=== PATIENT | female | born 1965 | race Caucasian/White ===

== ENCOUNTER 2017-03-24 10:42 | Inpatient (IN) | payer OTHER ==
[~2017-03-24] VITALS: Ht 171.4 cm; Wt 65.8 kg
[2017-03-24 12:48] LABS: ALBUMIN 3.8 g/dL (3.4-5.0); ALKALINE PHOSPHATASE 71 U/L (46-116); ALT (SGPT) 23 U/L (10-68); CALC OSMOLALITY 277 mosm/kg (275-300); CALCIUM 8.8 mg/dL (8.5-10.1); CARBON DIOXIDE 25.1 mmol/L (21.0-32.0); CHLORIDE - SERUM 105 mmol/L (98-107); CREATININE - SERUM 0.8 mg/dL (0.6-1.3); GLUCOSE 97 mg/dL (74-106); POTASSIUM - SERUM 4.6 mmol/L (3.5-5.1); SODIUM 140 mmol/L (136-145); UREA NITROGEN 9 mg/dL (7-18); eGFR NON AFRICAN AMERICAN 79 mL/min (90-120)
[2017-03-24 12:51] LABS: BASOPHILS 0.1 % (0-2); EOSINOPHILS 0.2 % (0-7); HEMATOCRIT 40.1 % (36.0-48.0); HEMOGLOBIN 13.9 g/dL (12-16); IMMATURE GRANULOCYTES 0.3 % (0-5); LYMPHOCYTES 22.2 % (15-50); MCH 33.3 pg (26.0-34.0); MCHC 34.7 g/dL (31.0-37.0); MCV 96.2 fL (80.0-100.0); MEAN PLATELET VOLUME 9.1 fL (7.4-10.4); MONOCYTES 10.5 % (2-11); NEUTROPHILS 66.7 % (40-80); PLATELET COUNT 213 10x3/uL (130-400); RBC 4.17 10x6/uL (4.00-5.40); RDW 14.6 % (11.5-14.5); WBC 9.4 10x3/uL (4.8-10.8)
[2017-03-24 12:56] LABS: CREATINE KINASE 86 UL (21-215); MAGNESIUM - SERUM 2.1 mg/dL (1.8-2.4); PRO BNP 394 pg/mL (0-125); TROPONIN-I < 0.017 ng/mL (0.000-0.060)
[2017-03-24] MEDS ORDERED: VALIUM5 MG PO (15:31)
[2017-03-24] MEDS ORDERED: ZOFRAN8 MG PO (15:31)
[2017-03-24 16:32] VITALS: BP 140/85; BMI 22.4
[2017-03-24 17:56] LABS: BASOPHILS 0.1 % (0-2); EOSINOPHILS 0.3 % (0-7); HEMOGLOBIN 13.9 g/dL (12-16); IMMATURE GRANULOCYTES 0.2 % (0-5); LYMPHOCYTES 23.4 % (15-50); MCH 33.3 pg (26.0-34.0); MCHC 34.8 g/dL (31.0-37.0); MCV 95.9 fL (80.0-100.0); MEAN PLATELET VOLUME 8.9 fL (7.4-10.4); MONOCYTES 6.9 % (2-11); NEUTROPHILS 69.1 % (40-80); PLATELET COUNT 225 10x3/uL (130-400); RBC 4.17 10x6/uL (4.00-5.40); RDW 14.8 % (11.5-14.5); WBC 9.2 10x3/uL (4.8-10.8)
[2017-03-24 18:06] LABS: APTT 24.5 SECONDS (22.8-39.4)
[2017-03-24 18:07] LABS: INR 0.92 (0.85-1.17); PROTIME 12.2 SECONDS (11.6-15.0)
[2017-03-24 19:00] VITALS: BP 110/72
--- NOTE | 2017-03-24 20:00 | NUR ---
ASSESSMENT PER FLOWSHEET. IV PATENT LEFT WRIST SALINE LOCKED. HOB UP 30 DEGREES. SR UP X2 CALL LIGHT WITHIN REACH.
--- NOTE | 2017-03-24 22:44 | NUR ---
IV PAINFUL NO BLOOD RETURN RESITED TO RT FOREARM #22G X1 ATTEMPT. MORPHINE 4 MG IVP GIVEN FOR PAIN CONTROL ZOFRAN 4MG IVP GIVEN FOR NAUSEA.
[2017-03-25] VITALS (10 sets, daily range): BP systolic 87–119; BP diastolic 46–74; Ht 171.4 cm; Wt 65.8 kg
--- NOTE | 2017-03-25 | NUR ---
EYES CLOSED RESPIRATIONS WITH EASE AND UNLABORED. NPO FOR BROCH IN AM.
--- NOTE | 2017-03-25 02:30 | NUR ---
EYES CLOSED RESPIRATIONS WITH EASE AND UNLABORED.
--- NOTE | 2017-03-25 04:00 | NUR ---
AWAKE UP AD ALEXSANDRA TO BR VOIDS WELL.
--- NOTE | 2017-03-25 06:37 | NUR ---
C/O PAIN AND NAUSEA. MORPHINE 4 MG IVP GIVEN FOR PAIN ZOFRAN 4MG IVP GIVEN FOR NAUSEA.
--- NOTE | 2017-03-25 06:38 | NUR ---
REMAINS NPO FOR BRONCH.
--- NOTE | 2017-03-25 08:40 | NUR ---
A&O, DENIES NEEDS, CALL LIGHT IN REACH, BED LOWEST POSITION, WILL CONTINUE TO MONITOR
--- NOTE | 2017-03-25 09:31 | NUR ---
Patient Name: COSME BROWN Admission Status: ER Accout number: [id number] Admission Date: 03-24-2017 : 1965 Admission Diagnosis: Attending: FATMATA Current LOS: 1 Anticipated DC Date: 03-26-2017 Planned Disposition: Home Primary Insurance: [employer] EXCHANGE Discharge Planning Comments: CM MET WITH PATIENT REGARDING D/C NEEDS AND PLANS. PATIENT STATED SHE LIVES ALONE AND WILL DRIVE HERSELF HOME AT DISCHARGE. PATIENT STATED THERE ARE NO STEPS OR STAIRS AT HER HOME. PATIENT IS INDEPENDENT WITH HER CARE AND HAS NO DME AT HOME. PATIENT STATED SHE HAS FRIENDS THAT COULD HELP IF NEEDED. PATIENTS PCP IS DR. PÉREZ AND PHARMACY IS [facility] ON [address]. PATIENT REFUSED HOME HEALTH AT THIS TIME. CM WILL CONTINUE TO FOLLOW PATIENT WITH D/C NEEDS AND PLANS. PCP DR. [facility]LS[facility]- [phone] [place] [phone] Director Cloud Transformation: Dawn Burnette Is the patient Alert and Oriented? Yes 0 * How many steps to enter\exit or inside your home? 0 0 * PCP DR. PÉREZ 0 * Pharmacy [facility] [address] 0 * Preadmission Environment Home Alone 0 * ADLs Independent 0 * Equipment None 0 * List name and contact numbers for known caregivers / representatives who currently or will assist patient after discharge: [place] (FRIEND) [phone] 0 * Community resources currently utilized None 0 * Additional services required to return to the preadmission environment? Yes 0 * Can the patient safely return to the preadmission environment? Yes 0 * Has this patient been hospitalized within the prior 30 days at any hospital? No 0 Grand Total: 0
--- NOTE | 2017-03-25 10:18 | NUR ---
PT BEING TAKEN FOR TEST AT THIS TIME, NO VISABLE SIGNS OF PAIN OR DISCOMFORT AT THIS TIME. WILL CONTINUE TO MONITOR.
--- NOTE | 2017-03-25 20:00 | NUR ---
ASSESSMENT PER FLOWSHEET. IV PATENT RT FOREARM SALINE LOCKED. DR. KOHLER HERE TO SEE PATIENT. ORDERS REC'D.
--- NOTE | 2017-03-25 21:00 | NUR ---
PERMITS SIGNED BY PATIENT FOR POWER PORT IN AM DISCUSSED WITH PATIENT NPO STATUS AFTER MIDNIGHT.
--- NOTE | 2017-03-25 21:35 | NUR ---
C/O PAIN IN HEAD RATES PAIN LEVEL #8 MORPHINE 4MG IVP GIVEN FOR PAIN CONTROL.
--- NOTE | 2017-03-25 22:56 | NUR ---
C/O NAUSEA NO EMESIS SEEN ZOFRAN 4MG IVP GIVEN FOR NAUSEA
--- NOTE | 2017-03-26 | NUR ---
NPO FOR SURGERY IN AM.
--- NOTE | 2017-03-26 02:00 | NUR ---
EYES CLOSED RESPIRATIONS WITH EASE AND UNLABORED.
--- NOTE | 2017-03-26 03:29 | NUR ---
C/O PAIN HEAD AREA RATES PAIN LEVEL #8. DILAUDID 1MG IVP GIVEN FOR PAIN CONTROL.
[2017-03-26 04:00] VITALS: BP 96/52
--- NOTE | 2017-03-26 04:41 | NUR ---
TEMP SHOWING 101. ROOM VERY HOT ADJUSTED SETTINGS ON AIRCONDITIONER WILL RECHECK TEMP.
--- NOTE | 2017-03-26 05:01 | NUR ---
RECHECKED MORY=083.5. ROOM COOLER NOW. MEDS GIVEN PER OCT.
--- NOTE | 2017-03-26 05:58 | NUR ---
RESTING QUIETLY. REMAINS NPO FOR SURGERY. SR UP X2 CALL LIGHT WITHIN REACH.
--- NOTE | 2017-03-26 07:55 | NUR ---
ASSESSMENT PER FLOW SHEET.PT WITHOUT DISTRESS.NPO FOR SURGERY TODAY.MONITOR FOR NEEDS.CALL LIGHT IN REACH
[2017-03-26 09:02] VITALS: BP 104/61
[2017-03-26 13:26] VITALS: BP 95/51
--- NOTE | 2017-03-26 14:30 | NUR ---
PRE MEDS ORDERED.
--- NOTE | 2017-03-26 15:30 | NUR ---
TO OR VIA BED
[2017-03-26 16:28] VITALS: BP 105/58
[2017-03-26 19:13] VITALS: BP 123/73
--- NOTE | 2017-03-26 19:59 | NUR ---
PATIENT IS AWAKE AND ALERT. REQUESTED THE DOOR BE CLOSED. PATIENT DENIES FURTHER NEEDS. BED IN LOWEST POSITION, CALL LIGHT IN REACH. BED RAILS UP X'S 2. CLOSED THE DOOR FOR HER.
[2017-03-26 20:00] VITALS: BP 116/67; BP 123/73
--- NOTE | 2017-03-26 22:26 | NUR ---
PATIENT WAS RECIEVED FROM RECOVER AROUND 1909 POST-OP PORT PLACEMENT. PATIENT WAS STABLE WITH SOME DISCOMFORT NOTED, 4MG MORPHINE GIVEN IV. RECOVERY DID GIVE 1GM OF VANCOMYCIN THROUGH PIV. PAGED FOR MINIMAL TEMP INCREASE TO HAVE MEDICATION AVALIBLE FOR FEVER.
--- NOTE | 2017-03-26 22:45 | NUR ---
DR AYAH HOWARD GAVE T.O. FOR 650 TYLENOL Q4HP FOR TEMP >101.0 AND DO BLOOD CULTURES x2.
[2017-03-27] VITALS: BP 84/53
[2017-03-27 04:00] VITALS: BP 95/59
--- NOTE | 2017-03-27 07:45 | NUR ---
PT AOX4 RESP EVEN AND NONLABORED PT DENIES NEEDS AT THIS TIME IV TO RIGHT FOREARM PATENT AND INTACT AT THIS TIME SRX2 BED AT LOWEST SETTING CALL LIGHT WITHIN REACH WILL CONTINUE TO MONITOR
[2017-03-27 07:53] VITALS: BP 94/47
[2017-03-27 12:16] VITALS: BP 95/56
--- NOTE | 2017-03-27 12:23 | NUR ---
NUTRITION MONITORING & EVAL CHART REVIEWED, PT VISIT. TOLERATING REG BREAKFAST WITH GOOD PO INTAKE. ENCOURAGED PT TO FILL OUT MENU, WILL HONOR FOOD PREFERENCES. RD FOLLOWING
[2017-03-27 13:17] LABS: FUNGUS STAIN Final report (())
--- NOTE | 2017-03-27 15:40 | NUR ---
CM REASSESSMENT NOTE: PATIENT IS DISCHARGING HOME WITH NO NEEDS. REFUSED HOME HEALTH.
--- NOTE | 2017-03-27 15:47 | NUR ---
IV DISCONTINUED WITH CATHETER INTACT AT THIS TIME
[2017-03-27] MEDS ORDERED: HYDROCODON-ACE1 EAC7 PO (15:48)
--- NOTE | 2017-03-27 16:22 | NUR ---
PT GIVEN DISCHARGE INSTRUCTION WITH ONE PRESCRIPTION FOR PAIN MEDICATION AT THIS TIME PT VERBALIZES UNDERSTANDING AND LEFT MED/SURG FLOOR VIA AMBULATION AND PRIVATE VEHICLE AT THIS TIME
[2017-03-27 19:10] LABS: ACID FAST SMEAR Negative (()); AFB SPECIMEN PROCESSING Concentration (())
--- NOTE | 2017-04-03 11:49 | CN ---
PATIENT NAME:COSME BROWN MEDICAL RECORD: [id number] : 61 LOCATION:D.MS [facility] ADMIT DATE: 03/24/17 ACCOUNT: [id number] CONSULTING PHYSICIAN: KERA KOHLER MD REFERRING PHYSICIAN: ART MATHEWS MD DATE OF CONSULTATION: 03/25/2017 CHIEF COMPLAINT: Pneumonia. HISTORY OF PRESENT ILLNESS: I have been asked to see the patient for different 2 reasons. One is placement of a port for chemotherapy. I contacted Dr. New, who is patient consumer marketer for Dr. Mathews. She states that I can go ahead and proceed with the port placement. I told the patient I will try to place it on the left side and if I cannot then I will place it on the right side. The risks, possible complications and alternatives to procedure were explained to the patient. She elects to proceed. The patient has metastatic lung cancer. She has post-obstructive pneumonia. I have reviewed the bronchoscopic photographs. I have personally discussed the bronchoscopic images with Dr. Smith, the supervisor blood donor recruiters. I have personally reviewed her chest x-ray. I have asked to place a endobronchial stent. The patient had a CT scan of her [facility] and I do not have access to those images at this time. I will discuss her case with the radiologist once I have access to the images. Symptoms came on gradually. She is dyspneic at rest. Lying supine aggravates. Nothing alleviates. The patient was admitted through the Emergency Room. REVIEW OF SYSTEMS: Positive for dyspnea, no hemoptysis, no diarrhea. No hematemesis, no dyspepsia, positive for extremity pain. PAST MEDICAL AND SURGICAL HISTORY: Positive for lung cancer. HOME MEDICATIONS: Zofran, diazepam. ALLERGIES: No known drug allergies. SOCIAL HISTORY: Social use of alcohol. No illicit drug use. FAMILY HISTORY: Not pertinent. PHYSICAL EXAMINATION: GENERAL: The patient does appear acutely ill. She does not appear chronically ill. VITAL SIGNS: Reviewed. HEAD: External ears appear normal. EYES: Extraocular movements are intact. NECK: Trachea is midline. CHEST: No intercostal retractions. PULMONARY: No stridor, mildly labored. ABDOMEN: Nontender. EXTREMITIES: No peripheral cyanosis. CHEST: Decreased breath sounds on the left side. BACK: No thoracic kyphosis. LYMPHATICS: No lymphangitic streaking of the exposed extremities. CONSULT REPORT [id number] COSME BROWN PSYCHIATRIC: Anxious affect. NEUROLOGIC: Nonfocal, no lethargy. The patient answers questions appropriately, moves all extremities well. IMPRESSION: Lung cancer, metastatic with a postobstructive pneumonia. PLAN: Consider endobronchial stent placement. This is going to require getting accurate measurements and then contact the [employer] billing representative to bring some more stents and probably this will take place on Thursday as it will not take place over the weekend. The patient wonders where she can go home and then return on Thursday and that would be fine from my standpoint. I will also place a port either on the left side or right side. TRANSINT:[id number] Voice Confirmation ID: [id number] DOCUMENT ID: [id number] KERA KOHLER MD at 1149 CC: DAISY PÉREZ MD and ART MATHEWS MD [id number] DICTATION DATE: 03/26/17 185 FABRICATION LEAD: 03/26/17 2147 DIS IN 03/27/17 [id number] [place] [address]
[2017-04-03 20:08] LABS: AEROBE ID Final report (()); RESULT 1 Pantoea species (())
[2017-04-05 11:08] LABS: FUNGUS MYCOLOGY CULTURE Preliminary report (())
[2017-04-06 10:10] LABS: FUNGUS CULTURE RESULT 1 Candida dubliniensis (())
--- NOTE | 2017-04-08 14:02 | CN ---
PATIENT NAME:COSME BROWN MEDICAL RECORD: [id number] : [birth year] LOCATION:D.MS [facility] ADMIT DATE: 03/24/17 ACCOUNT: [id number] CONSULTING PHYSICIAN: GOPAL SAMANIEGO MD REFERRING PHYSICIAN: JERAMIE MATHEWS MD DATE OF CONSULTATION: 03/24/2017 CONSULT REQUESTING PHYSICIAN: Dr. Jeramie Mathews. REASON FOR CONSULTATION: Total atelectasis at the left lower lobe, cancer of the lung. HISTORY OF PRESENT ILLNESS: Ms. Brown is a 51-year-old female. 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 According to the patient, for the last few days, she has worsening shortness of breath. There were no fever and chills, no night sweats. She has cough with very little sputum production. She also feeling some tightness in the left side of the chest, feels like she cannot take deep breath. There is no radiation to the arm or to the jaw. The patient had a CT scan at [facility] today, but then she came to our ER for further evaluation. She found out she has total atelectasis of the left lower lobe on the chest x-ray. REVIEW OF SYSTEMS: Mainly in the history of present illness. PAST MEDICAL HISTORY: 1. Stage IV CA of the lung with metastasis to the brain, but type is not known. 2. Suspect COPD. 3. History of smoking, nicotine dependence. PAST SURGICAL HISTORY: She has a brain surgery for metastasis. ALLERGIES: She has no known drug allergies. MEDICATIONS: On [employer] is reviewed. PERSONAL AND SOCIAL HISTORY: The patient is an ex-smoker. She is a nondrinker. FAMILY HISTORY: Noncontributory. PHYSICAL EXAMINATION: GENERAL: Now, the patient is not in acute distress. VITAL SIGNS: The blood pressure is 140/85, pulse is 84, respirations 21, temperature 98.2, and SpO2 is 88% on room air. HEENT: Conjunctiva is pink. Sclera is nonicteric. NECK: Neck is supple. No JVD. CHEST: The chest excursion is minimal on the left side with absent breath sounds at the left base. No wheezing, crackles on the right side. HEART: Regular, normal sound, no murmur. ABDOMEN: Soft, bowel sounds present. No hepatosplenomegaly. RECTAL: Deferred. EXTREMITIES: No cyanosis, no clubbing, no pedal edema. SKIN: The skin is warm. Normal turgor. CENTRAL NERVOUS SYSTEM: The patient is awake and alert. There is no obvious cranial nerve abnormality. The gait was not tested. CONSULT REPORT [id number] COSME BROWN CHEST RADIOGRAPH: There is total atelectasis of the left lower lobe. LABORATORY DATA: CBC: The WBC is 9.4, hemoglobin 13.9, hematocrit is 40.1, and the platelet count 213. Chemistry: Sodium 140, potassium 4.6, chloride 105, BUN is 9, creatinine 0.8. ABG: The pH is 7.44, pCO2 of 32.8, and pO2 is 62. This was done on 4 liters nasal cannula. IMPRESSION: 1. Dyspnea secondary to obstructive pneumonia, left lower lobe. 2. Total atelectasis of the left lower lobe, most likely secondary to tumor, possible mucus plugging. 3. Stage IV cancer of the lung, metastasis to the brain, the type is unknown. We will get the note from [facility]. 4. Chronic obstructive pulmonary disease without exacerbation. 5. Ex-smoker. RECOMMENDATION: 1. Supplemental oxygen. 2. Albuterol, ipratropium nebulizer. 3. Mucinex 1200 mg b.i.d., start her on Zosyn to cover for gram-negative christina as well as for anaerobes. I will proceed with fiberoptic bronchoscopy tomorrow, have a detailed discussion with the patient, discussed and explained the procedure, discussed with Dr. Miller in the x-ray department to review the CT scan from [facility]. Dr. Mathews, thank for involving me in the care of Ms. Brown. TRANSINT:[id number] Voice Confirmation ID: [id number] DOCUMENT ID: [id number] GOPAL SAMANIEGO MD at 1402 CC: JERAMIE MATHEWS MD [id number] DICTATION DATE: 03/24/17 1651 OYSTER SHUCKER: 03/25/17 0140 DIS IN 03/27/17 [facility] [address] [place] [address]
--- NOTE | 2017-04-08 14:03 | OP ---
PATIENT NAME: COSME BROWN MEDICAL RECORD: [id number] :61 LOCATION:D.MS [address] ADMISSION DATE:03/24/17 SURGEON: GOPAL SAMANIEGO MD DATE OF OPERATION: 03/25/2017 PROCEDURE: Fiberoptic bronchoscopy. INDICATION: Ms. 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 Fiberoptic bronchoscopy was carried out to inspect the airway as well as obtain specimen for culture. MONITORING: EKG, pulse and blood pressure were monitored throughout the procedure. MEDICATIONS: Atropine 0.6 mg, Phenergan 12.5 mg, morphine sulfate 4 mg given, Versed 4 mg IV in divided doses and fentanyl 100 mcg IV in divided doses. PROCEDURE IN DETAIL: After obtaining conscious sedation, the fiberoptic bronchoscope was easily passed through the mouth. The epiglottis was normal. The vocal cords were normal, moving equally on phonation. The main trachea was normal. The melinda was splayed. The right main bronchus subsegment to the right upper lobe and right lower lobe were within normal range. No endobronchial lesion was seen. The left main bronchus was almost 50% narrowed from external compression. There was a polypoid mass in the bronchus intermedius and there was total occlusion. Specimen washing was obtained for routine culture and sensitivity and cytology. I will consult Dr. Kohler and the patient will need radiation to shrink the tumor. TRANSINT:[id number] Voice Confirmation ID: [id number] DOCUMENT ID: [id number] GOPAL SAMANIEGO MD at 1403 CC: KERA KOHLER MD and ART MATHEWS MD [id number] DICTATION DATE: 03/25/17 1113 BRICKLAYER'S ASSISTANT: 03/25/175 DIS IN 03/27/17 [facility] [address] [place] [address]
== END 2017-03-27 16:24 | disposition home or self-care (01) | DRG 194 ==
LOC: D.ER 10:42 → D.MS 14:35
PROVIDERS: Emergency Medicine; Internal Medicine Pulmonary Disease; ADMIT Internal Medicine Hematology & Oncology
PROC: 0BB78ZX Excision of Left Main Bronchus, Via Natural or Artificial Opening Endoscopic, Diagnostic (ICD-10-PCS; principal; 2017-03-25 11:00)
PROC: 0JH63XZ Insertion of Tunneled Vascular Access Device into Chest Subcutaneous Tissue and Fascia, Percutaneous Approach (ICD-10-PCS; 2017-03-26)
PROC: 02H633Z Insertion of Infusion Device into Right Atrium, Percutaneous Approach (ICD-10-PCS; 2017-03-26)
PROC: B2141ZZ Fluoroscopy of Right Heart using Low Osmolar Contrast (ICD-10-PCS; 2017-03-26)
DX: J18.9 Pneumonia, unspecified organism (principal); J98.11 Atelectasis; C34.90 Malignant neoplasm of unspecified part of unspecified bronchus or lung; C79.31 Secondary malignant neoplasm of brain; J44.9 Chronic obstructive pulmonary disease, unspecified; Z87.891 Personal history of nicotine dependence

== ENCOUNTER 2017-07-07 10:40 | Day surgery (SDC) | payer MEDICAID ==
[~2017-07-07] VITALS: Ht 170.2 cm; Wt 59.1 kg
[~2017-07-07 10:40] MED LIST: HYDROCODON-ACE1 EAC7 PO; VALIUM5 MG PO; ZOFRAN8 MG PO
[2017-07-07] MEDS ORDERED: IBUPROFEN800 MG PO (11:31)
[2017-07-07 11:45] VITALS: BP 98/64; Ht 170.2 cm; Wt 59.1 kg
[2017-07-07 11:53] LABS: BASOPHILS 0.2 % (0-2); EOSINOPHILS 2.4 % (0-7); HEMATOCRIT 35.1 % (36.0-48.0); HEMOGLOBIN 11.3 g/dL (12-16); IMMATURE GRANULOCYTES 0.2 % (0-5); LYMPHOCYTES 24.7 % (15-50); MCH 29.8 pg (26.0-34.0); MCHC 32.2 g/dL (31.0-37.0); MCV 92.6 fL (80.0-100.0); NEUTROPHILS 63.5 % (40-80); PLATELET COUNT 239 10x3/uL (130-400); RBC 3.79 10x6/uL (4.00-5.40); RDW 13.7 % (11.5-14.5); WBC 5.3 10x3/uL (4.8-10.8)
[2017-07-07 11:55] LABS: HCG URINE NEGATIVE (NEGATIVE)
[2017-07-07 12:15] LABS: CALC OSMOLALITY 277 mosm/kg (275-300); CALCIUM 9.1 mg/dL (8.5-10.1); CARBON DIOXIDE 23.5 mmol/L (21.0-32.0); CHLORIDE - SERUM 106 mmol/L (98-107); CREATININE - SERUM 0.6 mg/dL (0.6-1.3); GLUCOSE 90 mg/dL (74-106); SODIUM 140 mmol/L (136-145); UREA NITROGEN 9 mg/dL (7-18); eGFR NON AFRICAN AMERICAN > 90 mL/min (90-120)
--- NOTE | 2017-07-07 14:20 | NUR ---
1420-INFLATE CRE BALLOON 18-20 CRE TO 60 ROMANIAN.
--- NOTE | 2017-07-07 14:50 | NUR ---
PT REC'D TO ROOM VIA STRETCHER. AWAKE, ALERT, ORIENTED.
--- NOTE | 2017-07-07 14:55 | NUR ---
FULL LIQ DIET PROVIDED.
--- NOTE | 2017-07-07 15:05 | NUR ---
PT UP TO BR TO VOID.
--- NOTE | 2017-07-07 16:31 | NUR ---
1545 IV DC ,PORT NEEDLE REMOVED FLUSHED WITH HEPRIN AND SALINE PER HOSPITAL PROTOCAL
--- NOTE | 2017-07-14 15:43 | OP ---
PATIENT NAME: COSME BROWN MEDICAL RECORD: [id number] :61 LOCATION:D.OPS ADMISSION DATE: SURGEON: ARNULFO KOHLER MD DATE OF OPERATION: 07/07/2017 PREOPERATIVE DIAGNOSIS: Dysphagia. POSTOPERATIVE DIAGNOSES: 1. Esophageal stricture with exudate, radiation induced, from 28 cm to 32 cm from lips. 2. Vascular ectasias of the antrum as well as the duodenal bulb, likely radiation-induced. PROCEDURES: 1. Esophagogastroduodenoscopy with antral biopsies. 2. Gold probe cautery to vascular ectasias of the antrum as well as the duodenal bulb. 3. Esophageal dilation to 60-Polish through the catheter balloon. SURGEON: Arnulfo Kohler MD RATTAN WORKER: None. BLOOD LOSS: Minimal. ANESTHESIA: IV sedation. COMPLICATIONS: None. The risks, possible complications and alternatives to procedure were explained to the patient. A consent form was signed. ENDOSCOPIC COURSE: The patient was conveyed to the endoscopy suite electively on 07/07/2017. IV sedation was induced by the anesthesia staff. A bite block was inserted. A gastroscope was inserted into the mouth. It was advanced easily into the hypopharynx. The esophagus was easily intubated as were the stomach and duodenum. Upon withdrawal, retroflex and angulus views were obtained. Antral biopsies were obtained. Utilizing the gold probe, I cauterized gastric antral vascular ectasias as well as some vascular ectasias of the posterior wall of the duodenum. All the vascular ectasias were cauterized. I withdrew into the cardia of the stomach. I advanced through the catheter balloon. I then dilated the radiation stricture to 60 Polish. The gastroscope and balloon the dilator were then removed. I then readvanced the gastroscope. There had been no false passage or perforation during the dilation process. The endoscope was then withdrawn under direct vision. I will see the patient in my office in 2 to 3 weeks to discuss the results of the biopsies. She very likely may require repeat dilations in the future as the scarring process will probably recur. TRANSINT:[id number] Voice Confirmation ID: [id number] DOCUMENT ID: [id number] OPERATIVE REPORT [id number] COSME BROWN ARNULFO KOHLER MD at 1261 CC: DAISY PÉREZ MD [id number] DICTATION DATE: 07/07/17 1432 LICENSED MORTICIAN: 07/07/17 1601 [facility] 07/07/17 [address] [place] [address]
--- NOTE | 2017-07-14 15:43 | HP ---
PATIENT: COSME BROWN MEDICAL RECORD: [id number] ACCOUNT: [id number] LOCATION:PHOE[facility] : 61 ADMISSION DATE: 07/07/17 HISTORY AND PHYSICAL EXAMINATION CHIEF COMPLAINT: Difficulty swallowing. HISTORY OF PRESENT ILLNESS: The patient had dysphagia. It is throughout her esophagus. She has had some radiation to the area, so this may be radiation related. I am going to plan for an EGD with esophageal dilation. HOME MEDICATIONS: Valium, Placida, Motrin as well as Zofran. ALLERGIES: No known drug allergies. SOCIAL HISTORY: Ex-smoker. PAST MEDICAL AND SURGICAL HISTORY: Anxiety, chronic back pain, history of craniotomy, history of port placement, history of stage IV lung cancer, which she has received chemotherapy and radiation. PHYSICAL EXAMINATION: GENERAL: The patient appears chronically ill. She does not appear acutely ill. VITAL SIGNS: Reviewed. The entire physical examination was performed in the presence of a female nurse. HEENT: Head, external ears appear normal. Eyes, extraocular movements are intact. NECK: Trachea is midline. CHEST: No intercostal retractions. PULMONARY: Nonlabored. No stridor. IMPRESSION: Dysphagia. PLAN: EGD with esophageal dilation. TRANSINT:[id number] Voice Confirmation ID: [id number] DOCUMENT ID: [id number] KERA KOHLER MD at 1543 CC: DAISY PÉREZ MD [id number] DICTATION DATE: 07/07/17 1408 MANAGER DISCOVERY: 07/07/17 1447 [facility] 07/07/17 [id number] [place] [id number]
== END 2017-07-07 16:00 | disposition home or self-care (01) ==
LOC: D.OPS 10:40
PROVIDERS: Surgery
DX: K22.2 Esophageal obstruction (principal); Y84.2 Radiological procedure and radiotherapy as the cause of abnormal reaction of the patient, or of later complication, without mention of misadventure at the time of the procedure; K31.819 Angiodysplasia of stomach and duodenum without bleeding; Z85.118 Personal history of other malignant neoplasm of bronchus and lung; G89.29 Other chronic pain; M54.9 Dorsalgia, unspecified; F41.9 Anxiety disorder, unspecified; Z87.891 Personal history of nicotine dependence; Z79.891 Long term (current) use of opiate analgesic; Z79.1 Long term (current) use of non-steroidal anti-inflammatories (NSAID); Z79.899 Other long term (current) drug therapy; Z01.812 Encounter for preprocedural laboratory examination